=== PATIENT | female | born 1965 | race Two or more races ===

== ENCOUNTER 2018-12-16 23:47 | Emergency (ER) | payer BC ==
[~2018-12-16] VITALS: Ht 154.9 cm; Wt 68.9 kg
[2018-12-17 00:43] LABS: Basophils # (auto) 0.2 uL; Basophils % (auto) 2.2 % (0.0-2.0); Eosinophils # (auto) 0.1 uL; Eosinophils % (auto) 1.5 % (0.0-7.0); Hematocrit 41.4 % (36.0-46.0); Hemoglobin 13.5 g/dL (12.2-16.2); Lymphocytes # (auto) 1.5 uL; Lymphocytes % (auto) 19.8 % (10.0-50.0); Mean Corpuscular Hemoglobin 29.2 pg (28.0-32.0); Mean Corpuscular Hgb Conc. 32.6 g/dL (32.0-36.0); Mean Corpuscular Volume 89.5 fL (80.0-100.0); Monocytes # (auto) 0.5 uL; Monocytes % (auto) 6.1 % (0.0-12.0); Neutrophils # (auto) 5.4 uL; Neutrophils % (auto) 70.4 % (37.0-80.0); Platelet Count (auto) 346 10^3/uL (140-450); Red Blood Cells 4.63 10^6/uL (4.0-5.20); Red Cell Distribution Width 14.5 % (11.8-14.3); White Blood Cell 7.7 10^3/uL (4.4-10.8)
[2018-12-17 00:53] LABS: Urine Bacteria MOD /hpf (None Seen); Urine Blood TRACE /uL (Negative); Urine Hyaline Cast FEW /lpf (0 - 2); Urine Mucus FEW (None Seen); Urine Specific Gravity 1.021 (1.001-1.035); Urine WBC 27 /hpf (0 - 5)
[2018-12-17 00:57] LABS: INR 0.95 (0.9-1.15); Partial Thromboplastin Time 25.8 sec (23.64-32.05); Prothrombin Time 10.3 sec (9.06-12.60)
[2018-12-17 01:01] LABS: Alanine Aminotransferase 23 U/L (13-56); Albumin 4.3 g/dL (3.4-5.0); Anion Gap 10 (5-15); Aspartate Aminotransferase 10 U/L (15-37); BUN/Creatinine Ratio 28.3; Blood Urea Nitrogen 28 mg/dL (7-18); Calcium 9.4 mg/dL (8.5-10.1); Carbon Dioxide 25 mmol/L (21-32); Chloride 104 mmol/L (98-107); GFR African American 75 mL/min; GFR Non-African American 62 mL/min; Glucose 147 mg/dL (74-106); Magnesium 2.1 mg/dL (1.6-2.6); Potassium 3.8 mmol/L (3.5-5.1); Sodium 139 mmol/L (136-145)
[2018-12-17 01:06] LABS: Alkaline Phosphatase 51 U/L (45-117); Bilirubin, Total 0.2 mg/dL (0.2-1.0); Total Protein 8.1 g/dL (6.4-8.2)
[2018-12-17 05:17] VITALS: BP 121/66
== END 2018-12-17 07:09 | disposition home or self-care (01) ==
LOC: ER 23:54
DX: N39.0 Urinary tract infection, site not specified (principal); E11.9 Type 2 diabetes mellitus without complications; E78.5 Hyperlipidemia, unspecified; I10 Essential (primary) hypertension
CPT/HCPCS: 36415; 70450; 71046; 80053; 81001; 82962; 83735; 83880; 84484; 85025; 85610; 85730; 93005; 99284; J7030

== ENCOUNTER → 2023-01-11 | Outpatient (CLI) | payer BC | END | disposition home or self-care (01) | LOC: LAB 09:38 | PROVIDERS: ATTEND Student in an Organized Health Care Education/Training Program | DX: Z12.11 Encounter for screening for malignant neoplasm of colon (principal); Z00.00 Encounter for general adult medical examination without abnormal findings; E78.5 Hyperlipidemia, unspecified; E11.9 Type 2 diabetes mellitus without complications | CPT/HCPCS: 82274 ==

== ENCOUNTER → 2024-01-19 | Outpatient (CLI) | payer BC ==
[2024-01-19 09:22] LABS: Basophils # (auto) 0 10 ^3/uL (0-0.2); Basophils % (auto) 0.7 % (0.0-2.0); Eosinophils # (auto) 0.2 10 ^3/uL (0-0.8); Eosinophils % (auto) 2.8 % (0.0-7.0); Hematocrit 38.4 % (36.0-46.0); Hemoglobin 13.1 g/dL (12.2-16.2); Lymphocytes # (auto) 2.5 10 ^3/uL (0.4-5.4); Lymphocytes % (auto) 33.5 % (10.0-50.0); Mean Corpuscular Hemoglobin 30.6 pg (28.0-32.0); Mean Corpuscular Hgb Conc. 34.1 g/dL (32.0-36.0); Mean Corpuscular Volume 89.5 fL (80.0-100.0); Monocytes # (auto) 0.5 10 ^3/uL (0-1.3); Monocytes % (auto) 7.2 % (0.0-12.0); Neutrophils # (auto) 4.2 10 ^3/uL (1.6-8.6); Neutrophils % (auto) 55.8 % (37.0-80.0); Red Blood Cells 4.28 10^6/uL (4.0-5.20); Red Cell Distribution Width 14.3 % (11.8-14.3); White Blood Cell 7.4 10^3/uL (4.4-10.8)
[2024-01-19 10:23] LABS: Alanine Aminotransferase 16 U/L (7-40); Albumin 4.4 g/dL (3.2-4.8); Alkaline Phosphatase 69 U/L (46-116); Anion Gap 7 (5-15); Aspartate Aminotransferase 8 U/L (13-40); BUN/Creatinine Ratio 22.1 (10.0-20.0); Blood Urea Nitrogen 19 mg/dL (9-23); Calcium 9.6 mg/dL (8.5-10.1); Carbon Dioxide 28 mmol/L (20-30); Chloride 105 mmol/L (98-107); Creatinine, Urine 96.96 mg/dL (30.0-125.0); Glucose 144 mg/dL (74-106); LDL Cholesterol 89 mg/dL (< 100); Potassium 4.6 mmol/L (3.5-5.1); Sodium 140 mmol/L (136-145); Triglycerides 235 mg/dL (< 150)
[2024-01-19 10:25] LABS: Bilirubin, Total 0.3 mg/dL (0.2-1.0); Cholesterol 167 mg/dL (< 200); HDL Cholesterol 37 mg/dL (40-59); Total Protein 6.8 g/dL (5.7-8.2)
== END | disposition home or self-care (01) ==
LOC: LAB 09:02
PROVIDERS: ATTEND Student in an Organized Health Care Education/Training Program
DX: Z12.11 Encounter for screening for malignant neoplasm of colon (principal); I10 Essential (primary) hypertension; E11.9 Type 2 diabetes mellitus without complications; E78.5 Hyperlipidemia, unspecified; K21.9 Gastro-esophageal reflux disease without esophagitis; E66.09 Other obesity due to excess calories
CPT/HCPCS: 36415; 80053; 80061; 82043; 82570; 83036; 85025

== ENCOUNTER 2024-11-12 14:27 | Emergency (ER) | payer BC ==
[~2024-11-12] VITALS: Ht 154.9 cm; Wt 75.5 kg
[2024-11-12] MEDS: methylPREDNISolone SOD SUCC 125 MG/2 ML VL IV ONE (15:43)
[2024-11-12] MEDS: diphenhdrAMINE HCL 50 MG/1 ML VL IV ONE (15:44)
[2024-11-12] MEDS: EPINEPHrine HCL 1 MG/1 ML AMP SC ONE (15:51)
[2024-11-12 16:17] LABS: Chloride 99 mmol/L (98-107); Potassium 4.5 mmol/L (3.5-5.1)
[2024-11-12 16:18] LABS: Anion Gap 14 (5-15); Calcium 10.2 mg/dL (8.7-10.4); Carbon Dioxide 23 mmol/L (20-31)
[2024-11-12 16:23] LABS: BUN/Creatinine Ratio 24.3 (10.0-20.0)
[2024-11-12 16:27] LABS: Blood Urea Nitrogen 25 mg/dL (9-23); Glucose 175 mg/dL (74-106); Sodium 136 mmol/L (136-145)
[2024-11-12] MEDS: FAMOTIDINE INJECTION 40 MG in SODIUM CHL 0.9% 100 ML IV ONE (16:34)
[2024-11-12] MEDS ORDERED: DIPH25CA51 PO (17:38)
[2024-11-12] MEDS ORDERED: EPIN0.3I24 IJ (17:38)
[2024-11-12] MEDS ORDERED: METH4PAK PO (17:38)
--- NOTE | 2024-11-12 17:39 | ED.PDOC ---
HPI Allergic reaction HPI Comments This is a pleasant 59-year-old female with no pertinent MHx that presents for an allergic reaction that started approximately at 4:00 p.m. after eating her lunch. Began to feel pruritus from with the abdominal cavity up and now reports that her throat feels itchy and also feel swelling to the upper and lower eyelids. Tried Benadryl 3 hours ago with no improvement. Denies chest pain shortness of breath. 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 Pertinent PORTABLE MACHINE CUTTER History Family History Family History: Unknown Social History Smoker: Non-Smoker Alcohol: Occasionally Drugs: Denies Drug Use All Other Systems: Reviewed and Negative (Per HPI) Physical Exam General Appearance: No Apparent Distress, Normal HEENT: Normal ENT Inspection, Pharynx Normal, TMs Normal, Other (No signs of angioedema and airways intact) Neck: Full Range of Motion, Non-Tender, Normal, Normal Inspection Respiratory: Chest Non-Tender, Lungs Clear, No Accessory Muscle Use, No Respiratory Distress, Normal Breath Sounds Cardiovascular: No Edema, No JVD, No Murmur, No Gallop, Normal Peripheral Pulses, Regular Rate/Rhythm Breast Exam: Deferred Gastrointestinal: No Organomegaly, Non Tender, No Pulsatile Mass, Normal Bowel Sounds, Soft Genitalia: Deferred Pelvic: Deferred Rectal: Deferred Extremities: No calf tenderness, Normal capillary refill, Normal inspection, Normal range of motion, Non-tender, No pedal edema Musculoskeletal : Apperance: Normal Neurologic: Alert, marketing manager II-XII nml as Tested, No Motor Deficits, Normal Affect, Normal Mood, No Sensory Deficits Cerebellar Function: Normal Reflexes: Normal Skin: Dry, Normal Color, Rash (Scattered hives), Warm Lymphatic: No Adenopathy Was a procedure done? Was a procedure done?: No Differential diagnosis (all) Differential Diagnosis: Urticaria X-Ray, Labs, Meds, VS Vital Signs Date Time Temp Pulse Resp B/P (MAP) Pulse Ox O2 Delivery O2 Flow Rate FiO2 11/12/24 15:23 97.0 116 16 98 97.0 11/12/24 15:23 116 16 98 Room Air 11/12/24 14:50 97.0 132 16 132/99 (110) 95 97.0 11/12/24 14:50 16 95 Room Air* 0 21 Lab Test 11/12/24 15:55 Range/Units Sodium Level 136 136-145 mmol/L Potassium Level 4.5 3.5-5.1 mmol/L Chloride Level 99 98-107 mmol/L Carbon Dioxide Level 23 20-31 mmol/L Anion Gap 14 5-15 Blood Urea Nitrogen 25 H 9-23 mg/dL Creatinine 1.03 H 0.550-1.02 mg/dL Glomerular Filtration Rate Calc 62 >90 mL/min BUN/Creatinine Ratio 24.3 H 10.0-20.0 Serum Glucose 175 H 74-106 mg/dL Calcium Level 10.2 8.7-10.4 mg/dL Current Medications Medications (Trade) Dose Ordered Sig/Lorena Route Start Time Stop Time Status Last Admin Epinephrine HCl 0.3 mg ONCE ONCE SC 11/12/24 15:45 11/12/24 15:46 DC 11/12/24 15:51 Famotidine 40 mg/ Sodium Chloride 104 ml @ 416 mls/hr ONCE ONCE IV 11/12/24 15:45 11/12/24 15:59 DC 11/12/24 16:34 Diphenhydramine HCl (Benadryl Injection) 25 mg ONCE ONCE IV 11/12/24 15:45 11/12/24 15:46 DC 11/12/24 15:44 Methylprednisolone Sodium Succinate (Solu Medrol) 125 mg ONCE ONCE IV 11/12/24 15:45 11/12/24 15:46 DC 11/12/24 15:43 X-Ray, Labs, Meds, VS Comment Pt presents ED for an allergic reaction. On cause Pepcid, Solu-Medrol, Benadryl, epinephrine administered in ED for treatment. Patient reports significant improvement in symptoms following treatment. Patient was monitored in the ED for an extended amount of time. Medrol Dosepak prescribed for additional treatment. Patient was instructed to take hydroxyzine and use calamine lotion as needed for itchiness Follow-up with PCP in 1 to 2 days. Patient needs whitewater rafting guide referral for further testing Return to ED if symptoms persist, or sooner if symptoms worsen On reevaluation, patient had symptomatic improvement. Patient is stable for discharge at this time. External notes reviewed. Test results and diagnostic imaging interpreted. All diagnostic findings, discharge care, education and instructions provided Follow-up with PCP in 2 to 3 days Patient verbalized understanding and agreed to treatment plan Vital signs stable, afebrile, no acute distress noted Patient ambulatory with strong steady gait Advised to return precautions for any new or worsening symptoms, return to ER immediately for re-evaluation Patient is aware that the purpose of this visit was for an acute medical emergency requiring emergent stabilization. Chronic conditions, including malignancies have not been ruled out. Patient is instructed to follow up with PCP as directed and discharge instructions for continued care and workup. If unable to arrange follow-up, patient is to return to the emergency department for reassessment. Patient (parent or legal guardian if applicable) was given verbal and written discharge instructions and acknowledges understanding. Time of 1ST Reevaluation: 17:36 Reevaluation 1ST: Improved Patient Education/Counseling: Diagnosis, Treatment Family Education/Counseling: Diagnosis, Treatment Departure 1 Departure Time of Disposition: 17:37 Impression: Primary Impression: Allergic reaction Qualified Codes: T78.40XA - Allergy, unspecified, initial encounter Disposition: HOME / SELF CARE / HOMELESS Condition: Stable e-Prescriptions Epinephrine (Epinephrine) 0.3 Mg/0.3 Ml Inj 0.3 MG IJ UD for 1 Day, #1 INJ 0 Refills Prov: CAROLINE CAMARGO HARDBOARD SUPERVISOR 11/12/24 Diphenhydramine Hcl (BENADRYL CAPSULE) 25 Mg Cp 25 MG PO Q6HPRN PRN for 10 Days, #40 CAP 0 Refills Prov: CAROLINE CAMARGO NP 11/12/24 Methylprednisolone (Medrol Dosepak) 4 Mg Heber 4 MG PO UD, #21 TAB 0 Refills UAD Prov: CAROLINE CAMARGO NP 11/12/24 Discharged With: Self Critical Care Note Critical Care Time?: No Stability Stability form required: No Heart Score Heart Score: Heart Score Response (Comments) Value History N/A 0 EKG N/A 0 Age N/A 0 Risk Factors N/A 0 Troponin N/A 0 Total 0 CAROLINE CAMARGO NP Nov 12, 2024 17:39
[2024-11-12 17:44] VITALS: BP 98/64; PULSE 89; RESP 16; TEMP 98.1; O2SAT 100
== END 2024-11-12 17:45 | disposition home or self-care (01) ==
LOC: ER 14:27
DX: T78.40XA Allergy, unspecified, initial encounter (principal); I10 Essential (primary) hypertension; E11.9 Type 2 diabetes mellitus without complications; E78.5 Hyperlipidemia, unspecified; X58.XXXA Exposure to other specified factors, initial encounter
CPT/HCPCS: 36415; 80048; 96365; 96372; 96375; 99284; J0171; J1200; J2919; J3490

== ENCOUNTER 2024-11-21 08:56 | Inpatient (IN) | payer BC ==
[~2024-11-21] VITALS: Ht 154.9 cm; Wt 75.5 kg
[~2024-11-21 08:56] MED LIST: ATOR10TA52 PO; DIPH-751 PO; DIPH25CA51 PO; EPIN0.3I24 IJ; HYDR25TA5 PO; LISI10TA34 PO; METF-372 PO; METH4PAK PO; PANT40T PO
[2024-11-21 09:20] VITALS: PULSE 105; RESP 18; O2SAT 96
[2024-11-21] MEDS: methylPREDNISolone SOD SUCC 125 MG/2 ML VL IV ONE (09:21)
[2024-11-21] MEDS: FAMOTIDINE (10MG/ML) 2ML VL IV ONE (09:21)
[2024-11-21] MEDS: diphenhdrAMINE HCL 50 MG/1 ML VL IV ONE (09:21)
[2024-11-21] MEDS: EPINEPHrine HCL 1 MG/1 ML AMP IM ONE (09:22)
--- NOTE | 2024-11-21 09:34 | ED.PDOC ---
HPI Allergic reaction HPI Comments 59 y/o F, with PMHx of DM, HLD, and HTN presents to the ED for CC of allergic reaction. Patient arrived to the ED x1hr post commencement of symptoms after taking Advil; patient diaphoretic, short of breath, and has a swollen tongue. Patient relays, that she was seen at [facility] x1week ago for same symptoms. Patient comments, ttaking Benadryl x30min BLUE PRINTS TRIMMER with no relief. Patient moved to ED bed 12 for further evaluation and treatment. No other symptoms or modifying factors present at this time. Chief Complaint: Allergic Reaction Time Seen by MD: 09:00 Primary Care Provider: unknown Reviewed Notes: Nurses Notes, Medications, Allergies Allergies: Coded Allergies: NO KNOWN ALLERGIES (Unverified , 12/17/18) Home Meds Active Scripts Epinephrine (Epinephrine) 0.3 Mg/0.3 Ml Inj, 0.3 MG IJ UD for 1 Day, #1 INJ 0 Refills Prov:CAROLINE CAMARGO SALES ASSOCIATE CASHIER 11/12/24 Diphenhydramine Hcl (BENADRYL CAPSULE) 25 Mg Cp, 25 MG PO Q6HPRN PRN for 10 Days, #40 CAP 0 Refills Prov:CAROLINE CAMARGO SALES ASSOCIATE CASHIER 11/12/24 Methylprednisolone (Medrol Dosepak) 4 Mg Heber, 4 MG PO UD, #21 TAB 0 Refills UAD Prov:CAROLINE CAMARGO SALES ASSOCIATE CASHIER 11/12/24 Information Source: Patient Mode of Arrival: Ambulatory Severity: Moderate Rash: None SOB: Moderate Difficulty swallowing: None Pruritus: None Timing: Hours Duration: Since onset Prehospital treatment: Other (benadryl) Location: Mouth Exposed to: Unknown Developed: Difficult Swallowing Modyifying Factors: None Associated Sign and Symptoms: None Past Medical History PAST MEDICAL HISTORY: DM, High Lipids, HTN Surgical History: Denies all surgeries VEST FRONT PRESSER History: No Pertinent VEST FRONT PRESSER History Family History Family History: Unknown Social History Smoker: Non-Smoker Alcohol: Occasionally Drugs: Denies Drug Use Lives In: Home Constitutional: reports: sweats; denies: chills, diaphoresis, fatigue, fever, malaise, weakness, others EENTM: denies: blurred vision, double vision, ear bleeding, ear discharge, ear drainage, ear pain, ear ringing, eye pain, eye redness, hearing loss, mouth pain, mouth swelling, nasal discharge, nose bleeding, nose congestion, nose pain, photophobia, tearing, throat pain, throat swelling, voice changes, others Respiratory: denies: cough, hemoptysis, orthopnea, SOB at rest, shortness of breath, SOB with excertion, stridor, wheezing, others Cardiovascular: denies: chest pain, dizzy spells, diaphoresis, Dyspnea on exertion, edema, irregular heart beat, left arm pain, lightheadedness, palpitations, PND, syncope, others Gastrointestinal: denies: abdomen distended, abdominal pain, blood streaked bowels, constipated, diarrhea, dysphagia, difficulty swallowing, hematemesis, melena, nausea, poor appetite, poor fluid intake, rectal bleeding, rectal pain, vomiting, others Genitourinary: denies: abnormal vagina bleeding, burning, dyspareunia, dysuria, flank pain, frequency, hematuria, incontinence, pain, , vagina discharge, urgency, others Neurological: denies: dizziness, fainting, headache, left sided numbness, left sided weakness, numbness, paresthesia, pre-existing deficit, right sided numbness, right sided weakness, seizure, speech problems, tingling, tremors, weakness, others Musculoskeletal: denies: back pain, gout, joint pain, joint swelling, muscle pain, muscle stiffness, neck pain, others Integumetry: denies: bruises, change in color, change in hair/nails, dryness, laceration, lesions, lumps, rash, wounds, others Allergic/Immunocompromised: denies: Difficulty Healing, Frequent Infections, Hives, Itching, others Hematologic/Lymphatic: denies: anemia, blood clots, easy bleeding, easy bruising, swollen glands, others Endocrine: denies: excessive hunger, excessive sweating, excessive thirst, excessive urination, flushing, intolerance to cold, intolerance to heat, unexplained weight gain, unexplained weight loss, others Psychiatric: denies: anxiety, bipolar disorder, depression, hopeless, panic disorder, schizophrenia, sleepless, suicidal, others All Other Systems: Reviewed and Negative Physical Exam General Appearance: No Apparent Distress, Obese HEENT: Normal ENT Inspection, Pharynx Normal Neck: Full Range of Motion, Non-Tender, Normal, Normal Inspection Respiratory: Chest Non-Tender, Lungs Clear, No Accessory Muscle Use, No Respiratory Distress, Normal Breath Sounds Cardiovascular: No Edema, No Murmur, No Gallop, Normal Peripheral Pulses, Regular Rate/Rhythm Breast Exam: Deferred Gastrointestinal: No Organomegaly, Non Tender, No Pulsatile Mass, Normal Bowel Sounds, Soft Genitalia: Deferred Pelvic: Deferred Rectal: Deferred Extremities: No calf tenderness, Normal capillary refill, Normal inspection, Normal range of motion, Non-tender, No pedal edema Musculoskeletal : Apperance: Normal Neurologic: Alert Cerebellar Function: NOT DONE Reflexes: Normal Skin: Diaphoresis, Warm Lymphatic: No Adenopathy Was a procedure done? Was a procedure done?: No Differential diagnosis (all) Differential Diagnosis: Anaphylaxis, Drug Reaction X-Ray, Labs, Meds, VS Vital Signs Date Time Temp Pulse Resp B/P (MAP) Pulse Ox O2 Delivery O2 Flow Rate FiO2 11/21/24 12:00 98.1 101 17 108/67 (81) 94 98.1 11/21/24 09:22 21 97 Room Air* 0 21 11/21/24 09:22 98.4 118 21 157/77 (103) 97 98.4 11/21/24 09:20 105 18 96 Room Air* 0 21 11/21/24 09:20 97.7 105 18 96/56 (69) 96 97.7 Lab Test 11/21/24 14:05 11/21/24 10:35 11/21/24 09:45 11/21/24 09:19 Range/Units White Blood Count 18.1 H 20.1 H 4.4-10.8 10^3/uL Red Blood Count 4.88 5.01 4.0-5.20 10^6/uL Hemoglobin 14.2 15.1 12.2-16.2 g/dL Hematocrit 43.7 45.0 36.0-46.0 % Mean Corpuscular Volume 89.5 89.7 80.0-100.0 fL Mean Corpuscular Hemoglobin 29.0 30.0 28.0-32.0 pg Mean Corpuscular Hemoglobin Concent 32.4 33.5 32.0-36.0 g/dL Red Cell Distribution Width 14.1 14.0 11.8-14.3 % Platelet Count 370 433 140-450 10^3/uL Mean Platelet Volume 8.8 9.0 6.9-10.8 fL Neutrophils (%) (Auto) 90.6 H 66.9 37.0-80.0 % Lymphocytes (%) (Auto) 6.0 L 29.9 10.0-50.0 % Monocytes (%) (Auto) 2.9 2.5 0.0-12.0 % Eosinophils (%) (Auto) 0.1 0.4 0.0-7.0 % Basophils (%) (Auto) 0.4 0.3 0.0-2.0 % Neutrophils # (Auto) 16.4 H 13.4 H 1.6-8.6 10 ^3/uL Lymphocytes # (Auto) 1.1 6.0 H 0.4-5.4 10 ^3/uL Monocytes # (Auto) 0.5 0.5 0-1.3 10 ^3/uL Eosinophils # (Auto) 0 0.1 0-0.8 10 ^3/uL Basophils # (Auto) 0.1 0.1 0-0.2 10 ^3/uL Nucleated Red Blood Cells 0.1 0.1 % Urine Color Light-yellow Yellow Urine Clarity Clear Clear Urine pH 5.0 5.0-9.0 Urine Specific [place] 1.021 1.001-1.035 Urine Protein Trace H Negative Urine Ketones Negative Negative Urine Blood Negative Negative /uL Urine Nitrite Negative Negative Urine Bilirubin Negative Negative Urine Urobilinogen Normal Negative mg/dL Urine Leukocyte Esterase Negative Negative /uL Urine RBC <1 0 - 4 /hpf Urine Microscopic WBC 1 0-5 /HPF Urine Squamous Epithelial Cells Few <5 /hpf Urine Renal Epithelial Cells Few None Seen /hpf Urine Bacteria None seen None Seen /hpf Urine Hyaline Casts Mod 0 - 2 /lpf Urine Mucus Few None Seen Urine Glucose 1+ H Normal mg/dL Urine Opiates Screen Neg NEGATIVE Urine Fentanyl Screen Neg NEGATIVE Urine Barbiturates Screen Neg NEGATIVE Urine Phencyclidine Screen Neg NEGATIVE Urine Amphetamines Screen Neg NEGATIVE Urine Benzodiazepines Screen Neg NEGATIVE Urine Cocaine Screen Neg NEGATIVE Urine Cannabinoids Screen Neg NEGATIVE Sodium Level 136 136-145 mmol/L Potassium Level 3.5 3.5-5.1 mmol/L Chloride Level 103 98-107 mmol/L Carbon Dioxide Level 17 L 20-31 mmol/L Anion Gap 16 H 5-15 Blood Urea Nitrogen 27 H 9-23 mg/dL Creatinine 1.10 H 0.550-1.02 mg/dL Glomerular Filtration Rate Calc 58 >90 mL/min BUN/Creatinine Ratio 24.5 H 10.0-20.0 Serum Glucose 267 H 74-106 mg/dL Calcium Level 10.1 8.7-10.4 mg/dL Total Bilirubin 0.3 0.2-1.0 mg/dL Aspartate Amino Transferase (AST) 23 13-40 U/L Alanine Aminotransferase (ALT) 17 7-40 U/L Alkaline Phosphatase 79 46-116 U/L Total Protein 7.1 5.7-8.2 g/dL Albumin 4.6 3.2-4.8 g/dL POC Glucose 224 H 70-106 mg/dl Current Medications Medications (Trade) Dose Ordered Sig/Lorena Route Start Time Stop Time Status Last Admin Methylprednisolone Sodium Succinate (Solu Medrol) 125 mg ONCE ONCE IV 11/21/24 09:15 11/21/24 09:16 DC 11/21/24 09:21 Famotidine (Pepcid Injection) 40 mg ONCE ONCE IV 11/21/24 09:15 11/21/24 09:16 DC 11/21/24 09:21 Diphenhydramine HCl (Benadryl Injection) 50 mg ONCE ONCE IV 11/21/24 09:15 11/21/24 09:16 DC 11/21/24 09:21 Epinephrine HCl 0.3 mg ONCE ONCE IM 11/21/24 09:15 11/21/24 09:16 DC 11/21/24 09:22 Piperacillin Sod/ Tazobactam Sod 100 ml @ 100 mls/hr ONCE ONCE IV 11/21/24 11:00 11/21/24 11:59 DC 11/21/24 11:29 Vancomycin HCl 300 ml @ 200 mls/hr ONCE ONCE IV 11/21/24 11:15 11/21/24 12:44 DC 11/21/24 12:36 [place] [id number] Ph: [phone] DIAGNOSTIC IMAGING Diagnostic Imaging Report : [id number] Signed PATIENT: KAROLYN ARCET: [id number] UNIT: [id number] : 1965 LOC: ER ROOM / BED: / AGE / SEX: 59 / F ADM STATUS: REG ER SERVICE [id number] ORDERING PHYSICIAN: SHASTA WADE MD PROCEDURE(s): CXR1 - CHEST XRAY 1 VIEW REASON: cough ORDER NUMBER(s): [id number], ACCESSION NUMBER(s): [id number] CHEST RADIOGRAPH Indication: cough Technique: Single frontal view of the chest was obtained Comparison: None FINDINGS: Lines and Tubes: None Lungs: No focal consolidation. Pleura: No effusion. No pneumothorax. Cardiomediastinal contours: Unremarkable Bones: No acute osseous abnormality. IMPRESSION: No acute cardiopulmonary disease. ATED BY: AVERY PLUMMER MD DICTATED DATE/TIME: 11/21/24 1140 SIGNED BY: AVERY PLUMMER MD SIGNED DATE/TIME: 11/21/24 1140 CC: X-Ray, Labs, Meds, VS Comment This 59-year-old female presents secondary to facial swelling, difficulty breathing and difficulty swallowing. She had multiple similar episodes in the recent past. She was unsure of the trigger. While here, the patient was given multiple medications including prednisone, Benadryl and Pepcid. Upon reass essment, the patient was facial swelling had resolved and she appeared much better. However, she continues to have sustained leukocytosis. I am unclear of the etiology of leukocytosis. I am concerned the patient may have a serious occult infection that has been masked by the high dose of prednisone given. As such, met the patient for further workup management of her leukocytosis, facial swelling, and dyspnea. Time of 1ST Reevaluation: 09:30 Reevaluation 1ST: Unchanged Patient Education/Counseling: Diagnosis, Treatment Family Education/Counseling: No Family Present Departure 1 Departure Time of Disposition: 14:43 Impression: Primary Impression: Allergic reaction Additional Impressions: Leukocytosis Facial edema Dyspnea Disposition: 09 ADMITTED INPATIENT Admit to: Tele Condition: Serious Critical Care Note Critical Care Time?: No Stability Stability form required: No Heart Score Heart Score: Heart Score Response (Comments) Value History N/A 0 EKG N/A 0 Age N/A 0 Risk Factors N/A 0 Troponin N/A 0 Total 0 I personally scribed for SHASTA WADE MD ([email or web address]) on 11/21/24 at 09:34. Electronically submitted by Alberta Moore ([email or web address]). I personally scribed for SHASTA WADE MD ([email or web address]) on 11/21/24 at 09:36. Electronically submitted by Alberta Moore ([email or web address]). I personally scribed for SHASTA WADE MD ([email or web address]) on 11/21/24 at 09:39. Electronically submitted by Alberta Moore ([email or web address]). I personally scribed for SHASTA WADE MD ([email or web address]) on 11/21/24 at 09:40. Electronically submitted by Alberta Moore ([email or web address]). I personally scribed for SHASTA WADE MD ([email or web address]) on 11/21/24 at 12:58. Electronically submitted by Alberta Moore ([email or web address]). SHASTA WADE MD Nov 21, 2024 09:34
[2024-11-21 10:00] LABS: Basophils # (auto) 0.1 10 ^3/uL (0-0.2); Basophils % (auto) 0.3 % (0.0-2.0); Eosinophils # (auto) 0.1 10 ^3/uL (0-0.8); Eosinophils % (auto) 0.4 % (0.0-7.0); Hemoglobin 15.1 g/dL (12.2-16.2); Lymphocytes % (auto) 29.9 % (10.0-50.0); Mean Corpuscular Hgb Conc. 33.5 g/dL (32.0-36.0); Mean Corpuscular Volume 89.7 fL (80.0-100.0); Monocytes # (auto) 0.5 10 ^3/uL (0-1.3); Monocytes % (auto) 2.5 % (0.0-12.0); Neutrophils # (auto) 13.4 10 ^3/uL (1.6-8.6); Neutrophils % (auto) 66.9 % (37.0-80.0); Nucleated Red Blood Cells % 0.1 %; Platelet Count (auto) 433 10^3/uL (140-450); Red Blood Cells 5.01 10^6/uL (4.0-5.20); White Blood Cell 20.1 10^3/uL (4.4-10.8)
[2024-11-21 10:13] LABS: Alanine Aminotransferase 17 U/L (7-40); Albumin 4.6 g/dL (3.2-4.8); Alkaline Phosphatase 79 U/L (46-116); Anion Gap 16 (5-15); Aspartate Aminotransferase 23 U/L (13-40); BUN/Creatinine Ratio 24.5 (10.0-20.0); Calcium 10.1 mg/dL (8.7-10.4); Chloride 103 mmol/L (98-107); Potassium 3.5 mmol/L (3.5-5.1); Sodium 136 mmol/L (136-145); Total Protein 7.1 g/dL (5.7-8.2)
[2024-11-21 10:14] LABS: Bilirubin, Total 0.3 mg/dL (0.2-1.0)
[2024-11-21 10:17] LABS: Blood Urea Nitrogen 27 mg/dL (9-23); Carbon Dioxide 17 mmol/L (20-31); Glucose 267 mg/dL (74-106)
[2024-11-21] MEDS ORDERED: VANCOMYCIN PER PHARMACY 0 MG IV SCH (11:00)
[2024-11-21] MEDS: PIPERACILLIN-TAZOB 3.375GM 100 ML IV ONE (11:29)
--- NOTE | 2024-11-21 11:42 | DVH ---
CHEST RADIOGRAPH Indication: cough Technique: Single frontal view of the chest was obtained Comparison: None FINDINGS: Lines and Tubes: None Lungs: No focal consolidation. Pleura: No effusion. No pneumothorax. Cardiomediastinal contours: Unremarkable Bones: No acute osseous abnormality. IMPRESSION: No acute cardiopulmonary disease.
[2024-11-21 12:19] LABS: Amphetamine Screen, Urine Neg (NEGATIVE); Barbiturate Scree,Urine Neg (NEGATIVE); Benzodiazephine Screen, Urine Neg (NEGATIVE); Cannabinoid Screen, Urine Neg (NEGATIVE); Cocaine Screen, Urine Neg (NEGATIVE); Opiate Scree,Urine Neg (NEGATIVE); Phencyclidine Screen, Urine Neg (NEGATIVE)
[2024-11-21] MEDS: VANCOMYCIN 1.5GM/300ML 300 ML IV ONE (12:36)
[2024-11-21 13:18] LABS: Urine Bacteria None Seen /hpf (None Seen)
[2024-11-21 13:30] LABS: Urine Blood Negative /uL (Negative); Urine Clarity Clear (Clear); Urine Color Light-Yellow (Yellow); Urine Hyaline Cast MOD /lpf (0 - 2); Urine Mucus FEW (None Seen); Urine Protein, UAD TRACE (Negative); Urine Specific Gravity 1.021 (1.001-1.035); Urine Squamous Epithelial Cell FEW /hpf (<5); Urine Urobilinogen Normal (Negative); Urine WBC 1 /HPF (0-5)
[2024-11-21 14:23] LABS: Basophils # (auto) 0.1 10 ^3/uL (0-0.2); Basophils % (auto) 0.4 % (0.0-2.0); Eosinophils # (auto) 0 10 ^3/uL (0-0.8); Eosinophils % (auto) 0.1 % (0.0-7.0); Hematocrit 43.7 % (36.0-46.0); Hemoglobin 14.2 g/dL (12.2-16.2); Lymphocytes # (auto) 1.1 10 ^3/uL (0.4-5.4); Mean Corpuscular Hgb Conc. 32.4 g/dL (32.0-36.0); Mean Corpuscular Volume 89.5 fL (80.0-100.0); Monocytes # (auto) 0.5 10 ^3/uL (0-1.3); Monocytes % (auto) 2.9 % (0.0-12.0); Neutrophils # (auto) 16.4 10 ^3/uL (1.6-8.6); Neutrophils % (auto) 90.6 % (37.0-80.0); Nucleated Red Blood Cells % 0.1 %; Platelet Count (auto) 370 10^3/uL (140-450); Red Blood Cells 4.88 10^6/uL (4.0-5.20); Red Cell Distribution Width 14.1 % (11.8-14.3); White Blood Cell 18.1 10^3/uL (4.4-10.8)
[2024-11-21 20:44] VITALS: PULSE 97; RESP 18; O2SAT 95
--- NOTE | 2024-11-21 22:54 | DVHHPRES ---
History of Present Illness Resident Creating Document: ANTOINE BUENROSTRO RESIDENT History of Present Illness Patient is a 59-year-old female with past medical history of diabetes, hyperlipidemia, hypertension who comes in due to anaphylaxis. According to the patient, yesterday around 6:30 a.m. she had an egg McMuffin with sausage and coffee, then around 8:00 a.m. she took Aleve and within 20 minutes she started experiencing swelling in her throat with dizziness but without rash which is what prompted this visit to the hospital. Per patient, she was at the [facility] 1 week ago for similar symptoms of dizziness plus rash and itching after eating an egg sandwich and taking ibuprofen, however, patient notes current reaction was much worse than the 1 she had last time. Denies having similar symptoms ever before. On review of systems patient complained of shortness of breath, nausea, vomiting x4. Past Medical History diabetes, hyperlipidemia, hypertension Past Surgical History Past Social History Smoking: Denies Alcohol: Once in a while Drugs: Denies Review of Systems Constitutional: No: Fever, Chills, Sweats, Weakness, Malaise, Other Eyes: No: Pain, Vision change, Conjunctivae inflammation, Eyelid inflammation, Other, Redness ENT: No: Ear pain, Ear discharge, Nose pain, Nose discharge, Nose congestion, Mouth pain, Mouth swelling, Throat pain, Throat swelling, Other Respiratory: Shortness of breath; No: Cough, Dry, SOB with excertion, Wheezing, Hemoptysis, Pleuritic Pain, Sputum, Wheezing, Other Cardiovascular: No: Chest Pain, Palpitations, Orthopnea, Paroxysmal Noc. Dyspnea, Edema, Lt Headedness, Other Gastrointestinal: Nausea, Vomiting; No: Abdominal Pain, Diarrhea, Constipation, Melena, Hematochezia, Other Genitourinary: No Dysuria, No Frequency, No Incontinence, No Hematuria, No Retention, No Other Musculoskeletal: No: other, neck pain, shoulder pain, arm pain, back pain, hand pain, leg pain, foot pain Skin: No: Rash, Lesions, Jaundice, Bruising, Other Neurological: No: Weakness, Numbness, Incoordination, Change in speech, Confusion, Seizures, Other Allergies: Coded Allergies: NO KNOWN ALLERGIES (Unverified , 12/17/18) Medications Current Medications Medications Dose Ordered Sig/Lorena Route Start Time Stop Time Status Last Admin Dose Admin Vancomycin HCl 0 ml @ 0 mls/hr UD IV 11/21/24 11:00 Exam Vital Signs Vital Signs Date Time Temp Pulse Resp B/P (MAP) Pulse Ox O2 Delivery O2 Flow Rate FiO2 11/21/24 22:30 95 17 117/74 (88) 97 11/21/24 20:44 Room Air* 0 21 11/21/24 20:21 97.8 97.8 General Appearance: Alert, Oriented X3, Cooperative, mild distress HEENT: Atraumatic, PERRLA, EOMI, Other (Dry Mucous membranes) Respiratory: Clear to auscultation, Normal air movement Cardiovascular: Regular rate, Normal S1, Normal S2, No murmurs Abdominal: Normal bowel sounds, Soft, No tenderness Extremities: No clubbing, No edema Skin: No rashes Neuro: Normal gait, Normal speech, Strength at 5/5 X4 ext, Sensation intact Psych/Mental Status: Mental status NL, Mood NL Labs/Xrays Labs Test 11/21/24 14:05 11/21/24 10:35 11/21/24 09:45 11/21/24 09:19 Range/Units White Blood Count 18.1 H 4.4-10.8 10^3/uL Red Blood Count 4.88 4.0-5.20 10^6/uL Hemoglobin 14.2 12.2-16.2 g/dL Hematocrit 43.7 36.0-46.0 % Mean Corpuscular Volume 89.5 80.0-100.0 fL Mean Corpuscular Hemoglobin 29.0 28.0-32.0 pg Mean Corpuscular Hemoglobin Concent 32.4 32.0-36.0 g/dL Red Cell Distribution Width 14.1 11.8-14.3 % Platelet Count 370 140-450 10^3/uL Mean Platelet Volume 8.8 6.9-10.8 fL Neutrophils (%) (Auto) 90.6 H 37.0-80.0 % Lymphocytes (%) (Auto) 6.0 L 10.0-50.0 % Monocytes (%) (Auto) 2.9 0.0-12.0 % Eosinophils (%) (Auto) 0.1 0.0-7.0 % Basophils (%) (Auto) 0.4 0.0-2.0 % Neutrophils # (Auto) 16.4 H 1.6-8.6 10 ^3/uL Lymphocytes # (Auto) 1.1 0.4-5.4 10 ^3/uL Monocytes # (Auto) 0.5 0-1.3 10 ^3/uL Eosinophils # (Auto) 0 0-0.8 10 ^3/uL Basophils # (Auto) 0.1 0-0.2 10 ^3/uL Nucleated Red Blood Cells 0.1 % Urine Color Light-yellow Yellow Urine Clarity Clear Clear Urine pH 5.0 5.0-9.0 Urine Specific [place] 1.021 1.001-1.035 Urine Protein Trace H Negative Urine Ketones Negative Negative Urine Blood Negative Negative /uL Urine Nitrite Negative Negative Urine Bilirubin Negative Negative Urine Urobilinogen Normal Negative mg/dL Urine Leukocyte Esterase Negative Negative /uL Urine RBC <1 0 - 4 /hpf Urine Microscopic WBC 1 0-5 /HPF Urine Squamous Epithelial Cells Few <5 /hpf Urine Renal Epithelial Cells Few None Seen /hpf Urine Bacteria None seen None Seen /hpf Urine Hyaline Casts Mod 0 - 2 /lpf Urine Mucus Few None Seen Urine Glucose 1+ H Normal mg/dL Urine Opiates Screen Neg NEGATIVE Urine Fentanyl Screen Neg NEGATIVE Urine Barbiturates Screen Neg NEGATIVE Urine Phencyclidine Screen Neg NEGATIVE Urine Amphetamines Screen Neg NEGATIVE Urine Benzodiazepines Screen Neg NEGATIVE Urine Cocaine Screen Neg NEGATIVE Urine Cannabinoids Screen Neg NEGATIVE Sodium Level 136 136-145 mmol/L Potassium Level 3.5 3.5-5.1 mmol/L Chloride Level 103 98-107 mmol/L Carbon Dioxide Level 17 L 20-31 mmol/L Anion Gap 16 H 5-15 Blood Urea Nitrogen 27 H 9-23 mg/dL Creatinine 1.10 H 0.550-1.02 mg/dL Glomerular Filtration Rate Calc 58 >90 mL/min BUN/Creatinine Ratio 24.5 H 10.0-20.0 Serum Glucose 267 H 74-106 mg/dL Calcium Level 10.1 8.7-10.4 mg/dL Total Bilirubin 0.3 0.2-1.0 mg/dL Aspartate Amino Transferase (AST) 23 13-40 U/L Alanine Aminotransferase (ALT) 17 7-40 U/L Alkaline Phosphatase 79 46-116 U/L Total Protein 7.1 5.7-8.2 g/dL Albumin 4.6 3.2-4.8 g/dL POC Glucose 224 H 70-106 mg/dl Assessment/Plan Assessment/Plan Anaphylaxis without shock Leukocytosis - epinephrine IM once - IV methylprednisolone 125 mg - IV famotidine 40 mg once - IV diphenhydramine 50 mg once - vancomycin and IV Zosyn once - IV Zofran as needed - IV Benadryl 25 mg Diabetes Hypertension Dyslipidemia - Lantus 10 units q.p.m. - moderate sliding scale insulin - ordered A1c DVT prophylaxis: Levonox 40mg Goals of care: Full code, discussed for >16 minutes on 11/21/24 Plan discussed with patient Plan discussed with Dr. Kaur Plan discussed with: Patient, Other (RN) Date of Service: Nov 21, 2024 Billing Provider: ROSALIND KAUR MD Common Visit Codes: [id number] INP/OBS CARE (HIGH) ANTOINE BUENROSTRO RESIDENT Nov 21, 2024 22:54
[2024-11-21] MEDS ORDERED: ONDANSETRON HCL 4 MG/2 ML VIAL IV PRN (23:00)
[2024-11-21] MEDS ORDERED: DEXTROSE (50%) 50ML SYRG IV PRN (23:00)
[2024-11-22] VITALS (9 sets, daily range): BP systolic 117–133; BP diastolic 54–65; PULSE 63–81; RESP 16–18; TEMP 97.4–97.9; O2SAT 95–100
[2024-11-22] MEDS: ACCU-CHEK COMFORT CURVE STRIP VI SCH (00:11)
[2024-11-22] MEDS: INSULIN LANTUS (GLARGINE) 1 /0.01ml (100units/ml) SC SCH (00:19)
[2024-11-22] MEDS: InsuLIN REG 1unit/0.01ml Soln (100units/ml) SC SCH (00:25)
[2024-11-22] MEDS: SODIUM CHLORIDE 0.9% 1,000 ML IV SCH (00:30)
[2024-11-22 00:34] LABS: Rapid Influenza A Negative (Negative); Rapid Influenza B Negative (Negative)
[2024-11-22 00:35] LABS: COVID19 ANTIGEN SOFIA FIA NEGATIVE (NEGATIVE)
[2024-11-22] MEDS: diphenhdrAMINE HCL 50 MG/1 ML VL IV ONE (01:41)
[2024-11-22 06:58] LABS: Folate (Folic Acid) 14.85 ng/mL (>5.38)
[2024-11-22 07:00] LABS: Basophils # (auto) 0 10 ^3/uL (0-0.2); Basophils % (auto) 0.2 % (0.0-2.0); Eosinophils # (auto) 0 10 ^3/uL (0-0.8); Eosinophils % (auto) 0.1 % (0.0-7.0); Hematocrit 38.2 % (36.0-46.0); Hemoglobin 12.7 g/dL (12.2-16.2); Lymphocytes # (auto) 1.8 10 ^3/uL (0.4-5.4); Lymphocytes % (auto) 14.7 % (10.0-50.0); Mean Corpuscular Hemoglobin 29.7 pg (28.0-32.0); Mean Corpuscular Hgb Conc. 33.3 g/dL (32.0-36.0); Mean Corpuscular Volume 89.2 fL (80.0-100.0); Monocytes # (auto) 0.8 10 ^3/uL (0-1.3); Monocytes % (auto) 6.3 % (0.0-12.0); Neutrophils # (auto) 9.4 10 ^3/uL (1.6-8.6); Neutrophils % (auto) 78.7 % (37.0-80.0); Platelet Count (auto) 328 10^3/uL (140-450); Red Blood Cells 4.28 10^6/uL (4.0-5.20); Red Cell Distribution Width 13.8 % (11.8-14.3); White Blood Cell 11.9 10^3/uL (4.4-10.8)
[2024-11-22 07:12] LABS: Albumin 4.1 g/dL (3.2-4.8); Alkaline Phosphatase 62 U/L (46-116); Anion Gap 12 (5-15); Aspartate Aminotransferase 20 U/L (13-40); BUN/Creatinine Ratio 28.9 (10.0-20.0); Calcium 9.5 mg/dL (8.7-10.4); Carbon Dioxide 22 mmol/L (20-31); Chloride 104 mmol/L (98-107); Sodium 138 mmol/L (136-145); Total Protein 6.4 g/dL (5.7-8.2)
[2024-11-22 07:13] LABS: Bilirubin, Total 0.4 mg/dL (0.2-1.0)
[2024-11-22 07:34] LABS: Alanine Aminotransferase < 9 U/L (7-40); Blood Urea Nitrogen 28 mg/dL (9-23); Glucose 143 mg/dL (74-106)
[2024-11-22] MEDS: ATORVASTATIN 20 MG TAB PO ONE (08:35)
[2024-11-22] MEDS: ENOXAPARIN SOD 40 MG/0.4 ML SYRINGE SC SCH (09:12)
--- NOTE | 2024-11-22 15:12 | DVHPN2 ---
Subjective Patient has stated that her hives are getting better. Patient has had a mildly elevated troponin but denies any chest pain. Reviewed: Care Plan Changes from previous H/P or p: No Changes Eyes: No Pain, No Vision change, No Conjunctivae inflammation, No Eyelid inflammation, No Other, No Redness ENT: No Ear pain, No Ear discharge, No Nose pain, No Nose discharge, No Nose congestion, No Mouth pain, No Mouth swelling, No Throat pain, No Throat swelling, No Other Cardiovascular: No Chest Pain, No Palpitations, No Orthopnea, No Paroxysmal Noc. Dyspnea, No Edema, No Lt Headedness, No Other Respiratory: No Cough, No Dry; Shortness of breath; No SOB with excertion, No Wheezing, No Hemoptysis, No Pleuritic Pain, No Sputum, No Other Gastrointestinal: Nausea, Vomiting; No Abdominal Pain, No Diarrhea, No Constipation, No Melena, No Hematochezia, No Other Genitourinary: No Dysuria, No Frequency, No Incontinence, No Hematuria, No Retention, No Other Musculoskeletal: No other, No neck pain, No shoulder pain, No arm pain, No back pain, No hand pain, No leg pain, No foot pain Skin: No Rash, No Lesions, No Jaundice, No Bruising, No Other Objective Vitals Vital Signs Date Time Temp Pulse Resp B/P (MAP) Pulse Ox O2 Delivery O2 Flow Rate FiO2 11/22/24 11:59 97.5 66 16 128/62 (84) 97 97.5 11/22/24 08:00 Room Air* 0 21 Intake/Output Intake and Output 11/22/24 07:00 Intake Total 650 ml Balance 650 ml Intake Oral 0 ml IV Total 650 ml Exam HEENT pupils are reactive Neck is supple CV is S1-S2 regular rate and rhythm Respiratory are clear GI positive bowel sound Extremity no edema 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 Medications Current Medications Medications Dose Ordered Sig/Lorena Route Start Time Stop Time Status Last Admin Dose Admin Ondansetron HCl 4 mg Q4HP PRN IV 11/21/24 23:00 Enoxaparin Sodium 40 mg DAILY SC 11/22/24 10:00 11/22/24 09:12 40 MG Insulin Glargine 10 units HS SC 11/21/24 23:00 11/22/24 00:19 10 UNITS Diagnostic Test (Pha) 1 strip IQ4HR 11/22/24 00:00 11/22/24 12:07 1 STRIP Insulin Human Regular IQ4HR SC 11/22/24 00:00 11/22/24 12:07 3 UNITS Dextrose 50 ml UD PRN IV 11/21/24 23:00 Sodium Chloride 1,000 ml @ 125 mls/hr Q8H IV 11/22/24 00:30 11/22/24 09:11 125 MLS/HR Atorvastatin Calcium 40 mg HS PO 11/22/24 22:00 Famotidine 20 mg Q12HR PO 11/22/24 22:00 UNV Prednisone 20 mg DAILY PO 11/23/24 10:00 UNV Laboratory Results Laboratory Tests 11/22/24 05:25 Chemistry Test 11/22/24 05:25 Albumin 4.1 g/dL (3.2-4.8) Calcium Level 9.5 mg/dL (8.7-10.4) Total Protein 6.4 g/dL (5.7-8.2) LFT Test 11/22/24 05:25 Alanine Aminotransferase (ALT) < 9 U/L (7-40) Alkaline Phosphatase 62 U/L (46-116) Aspartate Amino Transferase (AST) 20 U/L (13-40) Total Bilirubin 0.4 mg/dL (0.2-1.0) HgA1c, TSH Test 11/22/24 05:25 Hemoglobin A1c 7.6 % A1C (<5.7) H Thyroid Stimulating Hormone (TSH) 0.68 uIU/mL (0.55-4.78) Urinalysis Test 11/21/24 10:35 Urine Color Light-yellow (Yellow) Urine Clarity Clear (Clear) Urine pH 5.0 (5.0-9.0) Urine Specific [place] 1.021 (1.001-1.035) Urine Protein Trace (Negative) H Urine Ketones Negative (Negative) Urine Blood Negative /uL (Negative) Urine Nitrite Negative (Negative) Urine Bilirubin Negative (Negative) Urine Urobilinogen Normal mg/dL (Negative) Urine Leukocyte Esterase Negative /uL (Negative) Urine RBC <1 /hpf (0 - 4) Urine Microscopic WBC 1 /HPF (0-5) Urine Squamous Epithelial Cells Few /hpf (<5) Urine Renal Epithelial Cells Few /hpf (None Seen) Urine Bacteria None seen /hpf (None Seen) Urine Hyaline Casts Mod /lpf (0 - 2) Urine Mucus Few (None Seen) Urine Glucose 1+ mg/dL (Normal) H Assessment/Plan Assessment/Plan 59-year-old female with a known history of diabetes mellitus type 2, hypertension, morbid obesity class one initially presented to the hospital with a hives and rash on the face and body after she had coffee and eggs [place], developed hives and then got leave after abdomen half. Patient is status post epinephrine as well as Solu-Medrol as well as Pepcid. 1. Allergic reaction unspecified either to food or drug 2. Leukocytosis likely reactive 3. Mildly elevated troponin suspect demand ischemia 4. Hypertension 5. Diabetes mellitus type 2 6. Morbid obesity class I -prednisone, Pepcid, Benadryl-p.r.n. -2D echo cardiology consultation -discharge plan. Plan discussed with: Patient My Orders Orders - NIKKI MATTA MD Procedure Category Date Status Time Troponin-I Hs LAB 11/22/24 In Process 13:39 Echo 2d Mode Cardiac US 11/22/24 Logged DOP 14:00 Famotidine Tablet PHA 11/22/24 Logged (Pepcid Tablet) 22:00 Prednisone Tablet PHA 11/23/24 Logged 10:00 Date of Service: Nov 22, 2024 Billing Provider: NIKKI MATTA MD Common Visit Codes: [id number] INP/OBS CARE(MOD) NIKKI MATTA MD Nov 22, 2024 15:12
--- NOTE | 2024-11-22 17:22 | DVHSR ---
APPROVED REPORT EXAM: Two-dimensional and M-mode echocardiogram with Doppler and color Doppler. Blood Pressure: 128/62 mmHg INDICATION high troponin RISK FACTORS Height: 5'1, Weight: 160 DIMENSIONS LVDd3.8 (3.8-5.7cm)LA (2D)3.7 (1.9-4.0cm)Aortic Root2.7 (2.0-3.7cm) LVDs2.8 (2.5-4.0cm)LA (MM) (1.9-4.0cm)Aortic Cusp Exc1.9 (1.5-2.0cm) EF (%) 52.3 (55-70%)Rt. Atrium3.6 (1.9-4.0cm)Asc. Aorta cm IVSd0.9 (0.7-1.1cm)RV (D)3.4 (1.8-2.4cm) PWd1.1 (0.7-1.1cm) Mitral Valve MitralMitral Stenosis E wave0.92m/sMV Mean GR.mmHg A wave1.11m/sMV Peak GR.63mmHg E/A ratio0.82D MVAcm2 DECEL [id number] 1/2 Timems Aortic Valve Aortic ValveAortic Stenosis V11.07m/Cecilia Mean GR.4mmHg V21.37m/Cecilia Peak GR.8mmHg LVOT Diameter1.9 (1.8-2.4cm)Doppler AVA2.21cm2 Pulmonic Valve V21.00m/s Tricuspid Valve TR Velocity2.61m/s [id number] Other Information Quality : Technically LimitedRhythm : Technically limited study due to body habitus.patient position. Conclusion LVEF normal at 50-55% rv normal
--- NOTE | 2024-11-22 21:31 | DVHINCON2 ---
Date of service: Nov 22, 2024 Referring Physician Shamir Reason for Consultation Elevated troponin History of Present Illness This is a 59-year-old female with a past medical history of diabetes, hyperlipidemia, hypertension who presented to the ED with complaints of anaphylaxis. Patient reports that yesterday around 6:30 a.m. she had an egg Mc Muffin with sausage and coffee from [employer], then around 8:00 a.m. she took Aleve and within 20 minutes she started experiencing swelling in her throat with dizziness but without rash. Patient states that she was recently here at [facility] 1 week ago for similar symptoms of dizziness plus rash and itching after eating an egg sandwich and taking ibuprofen, however, patient notes current reaction was much worse than the 1 she had last time. WBC 20.1. Troponin 37 >23. Chest x-ray showed NAD. Patient was admitted to the hospital. I am asked to consult on this patient. Family History: Diabetes mellitus G8 FATHER G8 BROTHER G8 BROTHER FH: cancer G8 FATHER Hypertension G8 MOTHER Allergies: Coded Allergies: Egg-derived Products (Verified Allergy, Severe, 11/22/24) Ibuprofen (Verified Allergy, Severe, 11/22/24) Home Meds Active Scripts Epinephrine (Epinephrine) 0.3 Mg/0.3 Ml Inj, 0.3 MG IJ UD for 1 Day, #1 INJ 0 Refills Prov:CAROLINE CAMARGO NP 11/12/24 Diphenhydramine Hcl (BENADRYL CAPSULE) 25 Mg Cp, 25 MG PO Q6HPRN PRN for 10 Days, #40 CAP 0 Refills Prov:CAROLINE CAMARGO NP 11/12/24 Methylprednisolone (Medrol Dosepak) 4 Mg [place], 4 MG PO UD, #21 TAB 0 Refills UAD Prov:CAROLINE CAMARGO NP 11/12/24 Reported Medications Atorvastatin Calcium (ATORVASTATIN CALCIUM) 10 Mg Tab, 1 TAB PO DAILY for 30 Days, #30 11/22/24 Pantoprazole Sodium Sesquihydr (Pantoprazole Sodium) 40 Mg Tab, 20 MG PO DAILY for 30 Days, #30 11/22/24 Hctz (Hydrochlorothiazide) 25 Mg Tab, 1 TAB PO DAILY for 30 Days, #30 11/22/24 Lisinopril (Lisinopril) 10 Mg Tab, 1 TAB PO DAILY for 30 Days, #30 11/22/24 Metformin Hydrochloride (Metformin Hcl) 1,000 Mg Tab, 1 TAB PO BID for 90 Days, #180 11/22/24 Diphenhydramine Hcl (Banophen) 25 Mg Cap, 1 CAP PO Q6HR PRN for 10 Days, #40 11/22/24 Current Medications Current Medications Medications (Trade) Dose Ordered Sig/Lorena Route PRN Reason Start Time Stop Time Status Last Admin Ondansetron HCl (Zofran) 4 mg Q4HP PRN IV NAUSEA / VOMITING 11/21/24 23:00 Enoxaparin Sodium (Lovenox) 40 mg DAILY SC 11/22/24 10:00 11/22/24 09:12 Insulin Glargine (Lantus) 10 units HS SC 11/21/24 23:00 11/22/24 00:19 Diagnostic Test (Pha) (Accu-Chek Comfort Curve T) 1 strip IQ4HR 11/22/24 00:00 11/22/24 19:51 Insulin Human Regular (InsuLIN R) IQ4HR SC 11/22/24 00:00 11/22/24 19:51 Dextrose 50 ml UD PRN IV Blood Sugar LESS THAN 60 11/21/24 23:00 Sodium Chloride 1,000 ml @ 125 mls/hr Q8H IV 11/22/24 00:30 11/22/24 16:53 Atorvastatin Calcium (Lipitor) 40 mg HS PO 11/22/24 22:00 Famotidine (Pepcid Tablet) 20 mg Q12HR PO 11/22/24 22:00 Prednisone 20 mg DAILY PO 11/23/24 10:00 Review of Systems Constitutional: reports: sweats; denies: chills, diaphoresis, fatigue, fever, malaise, weakness, others EENTM: denies: blurred vision, double vision, ear bleeding, ear discharge, ear drainage, ear pain, ear ringing, eye pain, eye redness, hearing loss, mouth pain, mouth swelling, nasal discharge, nose bleeding, nose congestion, nose pa in, photophobia, tearing, throat pain, throat swelling, voice changes, others Respiratory: denies: cough, hemoptysis, orthopnea, SOB at rest, shortness of breath, SOB with excertion, stridor, wheezing, others Cardiovascular: denies: chest pain, dizzy spells, diaphoresis, Dyspnea on exertion, edema, irregular heart beat, left arm pain, lightheadedness, palpitations, PND, syncope, others Gastrointestinal: denies: abdomen distended, abdominal pain, blood streaked bowels, constipated, diarrhea, dysphagia, difficulty swallowing, hematemesis, melena, nausea, poor appetite, poor fluid intake, rectal bleeding, rectal pain, vomiting, others Genitourinary: denies: abnormal vagina bleeding, burning, dyspareunia, dysuria, flank pain, frequency, hematuria, incontinence, pain, , vagina discharge, urgency, others Neurological: denies: dizziness, fainting, headache, left sided numbness, left sided weakness, numbness, paresthesia, pre-existing deficit, right sided numbness, right sided weakness, seizure, speech problems, tingling, tremors, weakness, others Musculoskeletal: denies: back pain, gout, joint pain, joint swelling, muscle pain, muscle stiffness, neck pain, others Integumetry: denies: bruises, change in color, change in hair/nails, dryness, laceration, lesions, lumps, rash, wounds, others Allergic/Immunocompromised: denies: Difficulty Healing, Frequent Infections, Hives, Itching, others Hematologic/Lymphatic: denies: anemia, blood clots, easy bleeding, easy bruising, swollen glands, others Endocrine: denies: excessive hunger, excessive sweating, excessive thirst, excessive urination, flushing, intolerance to cold, intolerance to heat, unexplained weight gain, unexplained weight loss, others Psychiatric: denies: anxiety, bipolar disorder, depression, hopeless, panic disorder, schizophrenia, sleepless, suicidal, others All Other Systems: Reviewed and Negative Vital Signs Vital Signs Date Time Temp Pulse Resp B/P (MAP) Pulse Ox O2 Delivery O2 Flow Rate FiO2 11/22/24 17:26 97.7 63 18 132/65 (87) 98 97.7 11/22/24 08:00 Room Air* 0 21 Physical Exam GENERAL: Alert and oriented x 3. No acute distress. Morbidly obese. EYES: PERRL, EOMI. Anicteric. HENT: Moist mucous membranes. LUNGS: Clear to auscultation bilaterally. CARDIOVASCULAR: Regular rate and rhythm. ABDOMEN: Soft, nontender and nondistended. EXTREMITIES: No edema. NEUROLOGIC: No focal neurological deficits. SKIN: Warm, dry. Labs/Diagnostic Data Labs Test 11/22/24 19:45 11/22/24 14:36 11/22/24 05:25 11/21/24 23:26 Range/Units POC Glucose 187 H 70-106 mg/dl Troponin I High Sensitivity 23 </=34 ng/L White Blood Count 11.9 #H 4.4-10.8 10^3/uL Red Blood Count 4.28 4.0-5.20 10^6/uL Hemoglobin 12.7 12.2-16.2 g/dL Hematocrit 38.2 # 36.0-46.0 % Mean Corpuscular Volume 89.2 80.0-100.0 fL Mean Corpuscular Hemoglobin 29.7 28.0-32.0 pg Mean Corpuscular Hemoglobin Concent 33.3 32.0-36.0 g/dL Red Cell Distribution Width 13.8 11.8-14.3 % Platelet Count 328 140-450 10^3/uL Mean Platelet Volume 9.3 6.9-10.8 fL Neutrophils (%) (Auto) 78.7 37.0-80.0 % Lymphocytes (%) (Auto) 14.7 10.0-50.0 % Monocytes (%) (Auto) 6.3 0.0-12.0 % Eosinophils (%) (Auto) 0.1 0.0-7.0 % Basophils (%) (Auto) 0.2 0.0-2.0 % Neutrophils # (Auto) 9.4 H 1.6-8.6 10 ^3/uL Lymphocytes # (Auto) 1.8 0.4-5.4 10 ^3/uL Monocytes # (Auto) 0.8 0-1.3 10 ^3/uL Eosinophils # (Auto) 0 0-0.8 10 ^3/uL Basophils # (Auto) 0 0-0.2 10 ^3/uL Nucleated Red Blood Cells 0.0 % Sodium Level 138 136-145 mmol/L Potassium Level 5.0 3.5-5.1 mmol/L Chloride Level 104 98-107 mmol/L Carbon Dioxide Level 22 20-31 mmol/L Anion Gap 12 5-15 Blood Urea Nitrogen 28 H 9-23 mg/dL Creatinine 0.97 0.550-1.02 mg/dL Glomerular Filtration Rate Calc 67 >90 mL/min BUN/Creatinine Ratio 28.9 H 10.0-20.0 Serum Glucose 143 H 74-106 mg/dL Hemoglobin A1c 7.6 H <5.7 % A1C Calcium Level 9.5 8.7-10.4 mg/dL Total Bilirubin 0.4 0.2-1.0 mg/dL Aspartate Amino Transferase (AST) 20 13-40 U/L Alanine Aminotransferase (ALT) < 9 7-40 U/L Alkaline Phosphatase 62 46-116 U/L Total Protein 6.4 5.7-8.2 g/dL Albumin 4.1 3.2-4.8 g/dL Vitamin B12 Level 380 211-911 pg/mL Vitamin D 25-Hydroxy 48.1 30.0-100 ng/mL Folic Acid 14.85 >5.38 ng/mL Thyroid Stimulating Hormone (TSH) 0.68 0.55-4.78 uIU/mL Random Vancomycin Level 10.3 H 5-10 ug/mL Influenza Type A Antigen Negative Negative Influenza Type B Antigen Negative Negative SARS-CoV-2 Antigen (Rapid) Negative NEGATIVE Test 11/21/24 10:35 Range/Units Urine Color Light-yellow Yellow Urine Clarity Clear Clear Urine pH 5.0 5.0-9.0 Urine Specific [place] 1.021 1.001-1.035 Urine Protein Trace H Negative Urine Ketones Negative Negative Urine Blood Negative Negative /uL Urine Nitrite Negative Negative Urine Bilirubin Negative Negative Urine Urobilinogen Normal Negative mg/dL Urine Leukocyte Esterase Negative Negative /uL Urine RBC <1 0 - 4 /hpf Urine Microscopic WBC 1 0-5 /HPF Urine Squamous Epithelial Cells Few <5 /hpf Urine Renal Epithelial Cells Few None Seen /hpf Urine Bacteria None seen None Seen /hpf Urine Hyaline Casts Mod 0 - 2 /lpf Urine Mucus Few None Seen Urine Glucose 1+ H Normal mg/dL Urine Opiates Screen Neg NEGATIVE Urine Fentanyl Screen Neg NEGATIVE Urine Barbiturates Screen Neg NEGATIVE Urine Phencyclidine Screen Neg NEGATIVE Urine Amphetamines Screen Neg NEGATIVE Urine Benzodiazepines Screen Neg NEGATIVE Urine Cocaine Screen Neg NEGATIVE Urine Cannabinoids Screen Neg NEGATIVE Assessment Allergic reaction unspecified either to food or drug. Leukocytosis likely reactive. Elevated troponin. Hypertension. Diabetes mellitus type 2. Morbid obesity class I. Plan/Recommendation I agree with your ongoing assessment and care of plan. Lipitor. DVT prophylactics. Additional plan as per the hospital course. A total of 45 minutes was spent reviewing the patient record, examining the patient, making a diagnostic and therapeutic plan, discussing this plan with medical personnel, following up on diagnostic studies and following the patient for clinical stability excluding any and all procedures. At least 50% of this time was spent in direct, [id number] contact. Plan discussed with: Patient NASREEN GAN MD Nov 22, 2024 20:28
[2024-11-22] MEDS: FAMOTIDINE 20 MG TAB PO SCH (21:41)
[2024-11-22] MEDS: ATORVASTATIN 20 MG TAB PO SCH (21:41)
[2024-11-23] VITALS (8 sets, daily range): BP systolic 111–139; BP diastolic 57–69; PULSE 51–85; RESP 17–19; TEMP 97–98.2; O2SAT 97–99
[2024-11-23] MEDS: predniSONE 20 MG TAB PO SCH (09:36)
[2024-11-23] MEDS ORDERED: FAMO20TA10 PO (14:17)
[2024-11-23] MEDS ORDERED: METH4PAK PO (14:17)
--- NOTE | 2024-11-23 14:19 | DVHDS2 ---
Discharge Summary Date of Admission Nov 21, 2024 at 22:48 Date of Discharge: Nov 23, 2024 Labs/Diagnostic Data: Laboratory Results Test 11/23/24 11:25 11/22/24 14:36 11/22/24 05:25 11/21/24 23:26 POC Glucose 119 mg/dl (70-106) Troponin I High Sensitivity 23 ng/L (</=34) White Blood Count 11.9 10^3/uL (4.4-10.8) Red Blood Count 4.28 10^6/uL (4.0-5.20) Hemoglobin 12.7 g/dL (12.2-16.2) Hematocrit 38.2 % (36.0-46.0) Mean Corpuscular Volume 89.2 fL (80.0-100.0) Mean Corpuscular Hemoglobin 29.7 pg (28.0-32.0) Mean Corpuscular Hemoglobin Concent 33.3 g/dL (32.0-36.0) Red Cell Distribution Width 13.8 % (11.8-14.3) Platelet Count 328 10^3/uL (140-450) Mean Platelet Volume 9.3 fL (6.9-10.8) Neutrophils (%) (Auto) 78.7 % (37.0-80.0) Lymphocytes (%) (Auto) 14.7 % (10.0-50.0) Monocytes (%) (Auto) 6.3 % (0.0-12.0) Eosinophils (%) (Auto) 0.1 % (0.0-7.0) Basophils (%) (Auto) 0.2 % (0.0-2.0) Neutrophils # (Auto) 9.4 10 ^3/uL (1.6-8.6) Lymphocytes # (Auto) 1.8 10 ^3/uL (0.4-5.4) Monocytes # (Auto) 0.8 10 ^3/uL (0-1.3) Eosinophils # (Auto) 0 10 ^3/uL (0-0.8) Basophils # (Auto) 0 10 ^3/uL (0-0.2) Nucleated Red Blood Cells 0.0 % Sodium Level 138 mmol/L (136-145) Potassium Level 5.0 mmol/L (3.5-5.1) Chloride Level 104 mmol/L (98-107) Carbon Dioxide Level 22 mmol/L (20-31) Anion Gap 12 (5-15) Blood Urea Nitrogen 28 mg/dL (9-23) Creatinine 0.97 mg/dL (0.550-1.02) Glomerular Filtration Rate Calc 67 mL/min (>90) BUN/Creatinine Ratio 28.9 (10.0-20.0) Serum Glucose 143 mg/dL (74-106) Hemoglobin A1c 7.6 % A1C (<5.7) Calcium Level 9.5 mg/dL (8.7-10.4) Total Bilirubin 0.4 mg/dL (0.2-1.0) Aspartate Amino Transferase (AST) 20 U/L (13-40) Alanine Aminotransferase (ALT) < 9 U/L (7-40) Alkaline Phosphatase 62 U/L (46-116) Total Protein 6.4 g/dL (5.7-8.2) Albumin 4.1 g/dL (3.2-4.8) Vitamin B12 Level 380 pg/mL (211-911) Vitamin D 25-Hydroxy 48.1 ng/mL (30.0-100) Folic Acid 14.85 ng/mL (>5.38) Thyroid Stimulating Hormone (TSH) 0.68 uIU/mL (0.55-4.78) Random Vancomycin Level 10.3 ug/mL (5-10) Influenza Type A Antigen Negative (Negative) Influenza Type B Antigen Negative (Negative) SARS-CoV-2 Antigen (Rapid) Negative (NEGATIVE) Test 11/21/24 10:35 Urine Color Light-yellow (Yellow) Urine Clarity Clear (Clear) Urine pH 5.0 (5.0-9.0) Urine Specific [place] 1.021 (1.001-1.035) Urine Protein Trace (Negative) Urine Ketones Negative (Negative) Urine Blood Negative /uL (Negative) Urine Nitrite Negative (Negative) Urine Bilirubin Negative (Negative) Urine Urobilinogen Normal mg/dL (Negative) Urine Leukocyte Esterase Negative /uL (Negative) Urine RBC <1 /hpf (0 - 4) Urine Microscopic WBC 1 /HPF (0-5) Urine Squamous Epithelial Cells Few /hpf (<5) Urine Renal Epithelial Cells Few /hpf (None Seen) Urine Bacteria None seen /hpf (None Seen) Urine Hyaline Casts Mod /lpf (0 - 2) Urine Mucus Few (None Seen) Urine Glucose 1+ mg/dL (Normal) Urine Opiates Screen Neg (NEGATIVE) Urine Fentanyl Screen Neg (NEGATIVE) Urine Barbiturates Screen Neg (NEGATIVE) Urine Phencyclidine Screen Neg (NEGATIVE) Urine Amphetamines Screen Neg (NEGATIVE) Urine Benzodiazepines Screen Neg (NEGATIVE) Urine Cocaine Screen Neg (NEGATIVE) Urine Cannabinoids Screen Neg (NEGATIVE) Other Laboratory Tests 11/22/24 05:25 Brief Hx & Hospital Course: 59-year-old female with a known history of diabetes mellitus type 2, hypertension, morbid obesity class one initially presented to the hospital with a hives and rash on the face and body after she had coffee and eggs [place], developed hives and then got leave after abdomen half. Patient is status post epinephrine as well as Solu-Medrol as well as Pepcid. Patient's allergic reaction was treated with the IV Solu-Medrol NT histamine. Patient has had mildly elevated troponin which was thought secondary to demand ischemia repeat troponins are negative. Cardiology evaluated the patient and cleared the patient to be discharged. Patient is being discharged under stable condition. Patient was recommended to eat bread separately then egg separately to find out whether she is allergic to bread or eggs or anything else. Patient understand verbalized understanding and agreeable to plan. Condition at Discharge: Stable Final Diagnosis/Problems List 59-year-old female with a known history of diabetes mellitus type 2, hypertension, morbid obesity class one initially presented to the hospital with a hives and rash on the face and body after she had coffee and eggs [place], developed hives and then got leave after abdomen half. Patient is status post epinephrine as well as Solu-Medrol as well as Pepcid. 1. Allergic reaction unspecified either to food or drug 2. Leukocytosis likely reactive 3. Mildly elevated troponin suspect demand ischemia 4. Hypertension 5. Diabetes mellitus type 2 6. Morbid obesity class I -prednisone, Pepcid, Benadryl-p.r.n. -2D echo cardiology consultation -discharge plan. Discharge Disposition: Home SNF Discharge Will this Physician continue t: No Discharge Instruct/Medications Diet: Cardiac 2g Na,low cholest Diet comment: 1800 ADA diet Activity: No Restrictions, As Tolerated Follow Up/Referral: Follow up with the PCP in 1-2 weeks Medications: Medrol Dosepak, Pepcid as prescribed Discharge Statement: "Patient was advised to return to the ER or call 911 if any headaches, dizziness, shortness of breath, chest pain, abdominal pain, bleeding, fevers, or worsening of medical condition. Patient was counseled about treatment plan, medications, possible side effects, patientverbalized understanding. All questions were answered to the best of my ability. This discharge took greater then 30 minutes in planning, reviewing documentation, counseling the patient, and discussing with other team members." ASSESSMENT ASSESSMENT Assessment 59-year-old female with a known history of diabetes mellitus type 2, hypertension, morbid obesity class one initially presented to the hospital with a hives and rash on the face and body after she had coffee and eggs [place], developed hives and then got leave after abdomen half. Patient is status post epinephrine as well as Solu-Medrol as well as Pepcid. 1. Allergic reaction unspecified either to food or drug 2. Leukocytosis likely reactive 3. Mildly elevated troponin suspect demand ischemia 4. Hypertension 5. Diabetes mellitus type 2 6. Morbid obesity class I -prednisone, Pepcid, Benadryl-p.r.n. -2D echo cardiology consultation -discharge plan. Date of Service: Nov 23, 2024 Billing Provider: NIKKI MATTA MD Common Visit Codes: 84923-INA/OBS DISCH DAY >30min NIKKI MATTA MD Nov 23, 2024 14:19
--- NOTE | 2024-11-23 19:29 | DVHPN2 ---
Progress Note - Dictate Date Seen: Nov 23, 2024 Medical Necessity Reason Pt with a Central, PICC or Fol: No Subjective Patient was seen and evaluated in follow up. No overnight events. Patient has no new complaints at this time. Patient denies any cardiac symptoms. Patient is cardiac stable for discharge. Telemetry reviewed. vital signs Vital Sign Date Time Temp Pulse Resp B/P (MAP) Pulse Ox O2 Delivery O2 Flow Rate FiO2 11/23/24 11:29 97.7 59 18 139/66 (90) 99 97.7 11/23/24 07:30 Room Air* 0 21 Total Intake and Output 11/22/24 11/22/24 11/23/24 15:00 23:00 07:00 Intake Total 2300 ml 750 ml Output Total 600 ml Balance 1700 ml 750 ml medications Current Medications Medications Dose Ordered Sig/Lorena Route Start Time Stop Time Status Last Admin Dose Admin Ondansetron HCl 4 mg Q4HP PRN IV 11/21/24 23:00 Enoxaparin Sodium 40 mg DAILY SC 11/22/24 10:00 11/23/24 09:37 40 MG Insulin Glargine 10 units HS SC 11/21/24 23:00 11/22/24 21:47 10 UNITS Diagnostic Test (Pha) 1 strip IQ4HR 11/22/24 00:00 11/23/24 11:50 1 STRIP Insulin Human Regular IQ4HR SC 11/22/24 00:00 11/22/24 23:55 3 UNITS Dextrose 50 ml UD PRN IV 11/21/24 23:00 Sodium Chloride 1,000 ml @ 125 mls/hr Q8H IV 11/22/24 00:30 11/23/24 03:56 125 MLS/HR Atorvastatin Calcium 40 mg HS PO 11/22/24 22:00 11/22/24 21:41 40 MG Famotidine 20 mg Q12HR PO 11/22/24 22:00 11/23/24 09:36 20 MG Prednisone 20 mg DAILY PO 11/23/24 10:00 11/23/24 09:36 20 MG objective GENERAL: Alert and oriented x 3. No acute distress. Morbidly obese. EYES: PERRL, EOMI. Anicteric. HENT: Moist mucous membranes. LUNGS: Clear to auscultation bilaterally. CARDIOVASCULAR: Regular rate and rhythm. ABDOMEN: Soft, nontender and nondistended. EXTREMITIES: No edema. NEUROLOGIC: No focal neurological deficits. SKIN: Warm, dry. laboratory and microbiology Laboratory Tests 11/22/24 05:25 Test 11/22/24 05:25 Range/Units Serum Glucose 143 H 74-106 mg/dL Problem List Allergic reaction unspecified either to food or drug. Leukocytosis likely reactive. Elevated troponin. Hypertension. Diabetes mellitus type 2. Morbid obesity class I. Assessment/Plan Continued all current supportive medical care. Lipitor. DVT prophylactics. Additional plan as per the hospital course. Plan discussed with: Patient NASREEN GAN MD Nov 23, 2024 13:08
== END 2024-11-23 17:17 | disposition home or self-care (01) | DRG 916 ==
LOC: ER 08:56 → OVERFLOW 22:48 → TELE-EAST 11-22 03:18
PROVIDERS: ADMIT Internal Medicine; ATTEND Internal Medicine
DX: T78.49XA Other allergy, initial encounter (principal); I24.89 Other forms of acute ischemic heart disease; E11.9 Type 2 diabetes mellitus without complications; I10 Essential (primary) hypertension; R06.00 Dyspnea, unspecified; R60.0 Localized edema; D72.829 Elevated white blood cell count, unspecified; E66.01 Morbid (severe) obesity due to excess calories; T78.1XXA Other adverse food reactions, not elsewhere classified, initial encounter; X58.XXXA Exposure to other specified factors, initial encounter; T39.315A Adverse effect of propionic acid derivatives, initial encounter; E78.5 Hyperlipidemia, unspecified; R79.89 Other specified abnormal findings of blood chemistry; Z20.822 Contact with and (suspected) exposure to COVID-19; Z79.899 Other long term (current) drug therapy; Z98.891 History of uterine scar from previous surgery; Z68.30 Body mass index [BMI] 30.0-30.9, adult; Z83.3 Family history of diabetes mellitus; Z82.49 Family history of ischemic heart disease and other diseases of the circulatory system; Y92.89 Other specified places as the place of occurrence of the external cause
CPT/HCPCS: 36415; 71045; 80053; 80202; 80307; 81001; 82306; 82607; 82746; 82962; 83036; 84443; 84484; 85025; 87426; 87804; 92610; 93306; 96365; 96372; 96375; G0378; J0171; J1815; J2543; J3490